=== PATIENT | female | born 1985 | race Caucasian/White ===

== ENCOUNTER 2016-09-17 21:38 | Emergency (ER) | payer MEDICAID ==
[~2016-09-17 21:38] MED LIST: ACTOS30 MG PO; AMOXICILLIN500 M1 PO; ANAPROX DS550 MG PO; AXERT12.5 MG; BCP; CIPRO500 M1 PO; CLINDAMYCIN HC150 MG PO; CLINDAMYCIN HC300 MG PO; CYCLOBENZAPRINE10 M1 PO; DARVOCET-N 1001 TAB PO; DAYQUIL; DELTASONE20 MG PO; EFFEXOR XR150 MG; FEMCON FE; FLEXERIL10 MG PO; H; HYDROCODONE/APA1 TAB PO; IBUPROFEN800 M1 PO; IBUPROFEN800 MG PO; IRON1 TA1; KLONOPIN0.5 M1 PO; KLONOPIN0.5 MG PO; KLONOPIN1 M1 PO; KLONOPIN1 MG; KLONOPIN1 MG PO; KLONOPIN2 MG PO; LEVAQUIN250 MG PO; LEXAPRO20 MG PO; LORTAB 5/500 TA1 TAB PO; MEDROL4 M2 PO; NO HOME MEDS; NO MEDICATIONS; NORCO 10/3251 TAB PO; NORCO 5-325 TA1 EACH PO; NORCO 5/325 TAB1 TAB PO; NYQUIL; OXYCONTIN20 MG; OXYCONTIN40 MG PO; PREDNISONE20 M1 PO; PRISTIQ ER100 MG PO; PYRIDIUM200 MG PO; SOMA350 MG; SOMA350 MG PO; TEMAZEPAM PO; TOPAMAX100 MG; TOPAMAX100 MG PO; TOPAMAX50 MG; TYLENOL #31 TAB PO; TYLENOL500 MG PO; VISTARIL50 M1 PO; VITAMIN D400 UNIT; XANAX0.5 MG; XANAX1 M1 PO; ZITHROMAX250MG Z-PAK PO; ZOLOFT100 MG PO
== END 2016-09-17 21:44 ==
LOC: EDMED 21:38
PROC: 3E0T3BZ Introduction of Anesthetic Agent into Peripheral Nerves and Plexi, Percutaneous Approach (ICD-10-PCS; principal; 2016-09-17)
DX: K02.9 Dental caries, unspecified (principal); F17.210 Nicotine dependence, cigarettes, uncomplicated

== ENCOUNTER 2016-11-20 02:01 | Emergency (ER) | payer SELFPAY ==
[2016-11-20 03:35] LABS: ANION GAP 10 mmol/L (0-20); BLOOD UREA NITROGEN 16 mg/dl (6-24); CALCIUM 8.6 mg/dl (8.5-10.5); CARBON DIOXIDE-VENOUS 27 mmol/L (22-32); CHLORIDE 111 mmol/l (96-110); CREATININE 0.74 mg/dl (0.50-1.10); GLUCOSE 104 mg/dL (70-110); POTASSIUM 3.8 mmol/L (3.7-5.1); SODIUM 144 mmol/L (135-145); eGFR VALUE FOR BLACK >90 mL/Min
[2016-11-20 04:21] LABS: URINE BILIRUBIN NEGATIVE (NEG); URINE BLOOD NEGATIVE (NEG); URINE GLUCOSE (UA) NEGATIVE (NEG); URINE KETONE NEGATIVE (NEG); URINE LEUKOCYTE ESTERASE POSITIVE (NEG); URINE NITRITE NEGATIVE (NEG); URINE PROTEIN SMALL (NEG); URINE SPECIFIC GRAVITY 1.015 (1.003-1.030)
[2016-11-20 04:22] LABS: URINE APPEARANCE CLEAR; URINE COLOR YELLOW
[2016-11-20 04:33] LABS: BASO % 0.4 % (0-2); EOS % 1.7 % (0-7); EOSINOPHIL ABSOLUTE COUNT 0.1 tho/cmm (0.0-0.7); HGB-HEMOGLOBIN 12.5 gm/dl (12.0-15.5); IMMATURE GRANULOCYTES ABSOLUTE 0.01 tho/cmm (0-0.03); IMMATURE GRANULOCYTES PERCENT 0.1 % (0-0.3); LYMPH % 45.6 % (20-45); LYMPH ABSOLUTE COUNT 3.7 tho/cmm (0.8-4.5); MCH (MEAN CORPUSCULAR HGB) 31.2 pg (28.0-32.0); MCHC MEAN CORPUSCULAR HGB CONC 33.8 % (32.0-36.0); MCV (MEAN CELL VOLUME) 92.3 fl (82.0-96.0); MEAN PLATELET VOLUME 8.6 cmc (9.4-12.4); MONOCYTE ABSOLUTE COUNT 0.5 tho/cmm (0.0-1.2); NEUTROPHIL ABSOLUTE COUNT 3.7 tho/cmm (1.6-8.0); NEUTROPHIL-AUTOMATED 3.7 tho/cmm (1.6-8.0); NEUTROPHILS % 46.2 % (40-80); PLATELET COUNT 342 tho/cmm (150-450); RED BLOOD COUNT 4.01 mil/cmm (4.00-5.20); RED CELL DISTRIBUTION WIDTH 13.2 % (12.4-16.4)
[2016-11-20] MEDS ORDERED: NORCO 5/3251 TAB PO (04:58)
[2016-11-20] MEDS ORDERED: ZOFRAN4 M2 PO (04:58)
[2016-11-20 05:04] LABS: URINE EPITHELIAL CELLS 0 /[HPF] (0-10); URINE RBC 0 /[HPF] (0-5)
== END 2016-11-20 05:20 ==
LOC: EDMED 02:01
PROVIDERS: Emergency Medicine
DX: S39.011A Strain of muscle, fascia and tendon of abdomen, initial encounter (principal); F32.9 Major depressive disorder, single episode, unspecified; D64.9 Anemia, unspecified; F17.210 Nicotine dependence, cigarettes, uncomplicated; Z90.710 Acquired absence of both cervix and uterus; Z90.49 Acquired absence of other specified parts of digestive tract; X50.0XXA Overexertion from strenuous movement or load, initial encounter
CPT/HCPCS: J2270; J2405; J7030

== ENCOUNTER 2016-12-07 15:59 | Emergency (ER) | payer SELFPAY ==
[~2016-12-07 15:59] MED LIST changes: +NORCO 5/3251 TAB PO; +ZOFRAN4 M2 PO
[2016-12-07] MEDS ORDERED: NORCO 5-325 TA1 EACH PO (17:24)
== END 2016-12-07 17:50 ==
LOC: EDMED 15:59
PROC: 2W3CXYZ Immobilization of Right Lower Arm using Other Device (ICD-10-PCS; principal; 2016-12-07)
DX: S63.501A Unspecified sprain of right wrist, initial encounter (principal); F17.210 Nicotine dependence, cigarettes, uncomplicated; W19.XXXA Unspecified fall, initial encounter; Y92.019 Unspecified place in single-family (private) house as the place of occurrence of the external cause
CPT/HCPCS: J2270; J2405

== ENCOUNTER 2016-12-10 21:31 | Emergency (ER) | payer SELFPAY ==
[2016-12-10] MEDS ORDERED: PROTONIX40 M2 PO (23:07)
[2016-12-10] MEDS ORDERED: COMPAZINE10 MG PO (23:07)
== END 2016-12-10 23:28 ==
LOC: EDMED 21:31
DX: K21.9 Gastro-esophageal reflux disease without esophagitis (principal); F17.200 Nicotine dependence, unspecified, uncomplicated; Z90.49 Acquired absence of other specified parts of digestive tract

== ENCOUNTER 2016-12-20 14:58 | Emergency (ER) | payer SELFPAY ==
[~2016-12-20 14:58] MED LIST changes: +COMPAZINE10 MG PO; +PROTONIX40 M2 PO
[2016-12-20] MEDS ORDERED: PROTONIX40 M2 (15:09)
[2016-12-20] MEDS ORDERED: COMPAZINE10 MG PO (15:09)
[2016-12-20] MEDS ORDERED: NORCO 5-325 TA1 EACH PO (15:31)
[2016-12-20] MEDS ORDERED: PENICILLIN V P500 M1 PO (15:31)
== END 2016-12-20 16:03 ==
LOC: EDMED 14:58
DX: K08.89 Other specified disorders of teeth and supporting structures (principal)